=== PATIENT | female | born 1945 | race Caucasian/White ===

== ENCOUNTER 2025-02-14 11:15 | Outpatient (RCR) | payer MEDICARE, SELFPAY | END 2025-02-14 16:59 | disposition home or self-care (01) | LOC: HO.WCC 11:15 | PROVIDERS: PCP Family Medicine; Visit Provider Surgery Surgical Oncology | DX: S81.812D Laceration without foreign body, left lower leg, subsequent encounter (principal); W19.XXXD Unspecified fall, subsequent encounter; Z87.891 Personal history of nicotine dependence | CPT/HCPCS: 11042; 99212 ==